=== PATIENT | female | born 1955 ===

== ENCOUNTER 2018-01-20 12:38 | Emergency (ER) | payer MEDICAID ==
[2018-01-20 12:46] VITALS: BP 133/80; TEMP 98
[2018-01-20] MEDS ORDERED: Albuterol-Ipratrop 3 mg / 0.5 (3 ml) UD ONE ×2 (12:55→13:48)
[2018-01-20] MEDS ORDERED: Albuterol-Ipratrop 3 mg / 0.5 (3 ml) UD IH SCH (13:15)
[2018-01-20] MEDS ORDERED: MethylPREDNISolone 40 mg Vial IVP STA (13:16)
[2018-01-20] MEDS ORDERED: Albuterol-Ipratrop 3 mg / 0.5 (3 ml) UD IH STA (13:46)
--- NOTE | 2018-01-20 13:48 | C.PDOC ---
History Of Present Illness 62 year old female, whose past medical history includes asthma, presents to the ED for evaluation of shortness of breath. Patient states she experiences shortness of breath on a daily basis, but her symptoms have been much worse over the past two days. She denies fever, chills, nausea and vomiting at this time. Time Seen by Provider: 01/20/18 12:53 Chief Complaint (Nursing): Shortness Of Breath History Per: Patient History/Exam Limitations: no limitations Onset/Duration Of Symptoms: Days (two ) Current Symptoms Are (Timing): Worse Current Respiratory Medications: See Home Med List Associated Symptoms: denies: Fever, Chills Additional History Per: Patient Past Medical History Reviewed: Historical Data, Nursing Documentation, Vital Signs Vital Signs: Last Vital Signs Temp 98 F 01/20/18 12:42 Pulse 90 01/20/18 12:42 Resp 22 01/20/18 12:54 BP 133/80 01/20/18 12:42 Pulse Ox 95 01/20/18 12:42 - Medical History PMH: Asthma, Hypercholesterolemia Surgical History: Appendectomy, Cholecystectomy - [facility] Procedures LAPAROSCOP APPENDECTOMY (09/01/12) Family History: States: Unknown Family Hx - Social History Hx Alcohol Use: No Hx Substance Use: No - Immunization History Hx Tetanus Toxoid Vaccination: No Hx Influenza Vaccination: No Hx Pneumococcal Vaccination: No Review Of Systems Constitutional: Negative for: Fever, Chills Respiratory: Positive for: Shortness of Breath Gastrointestinal: Negative for: Nausea, Vomiting Physical Exam - Physical Exam Additional Physical Exam Comments: Constitutional: No acute distress. Head: Normocephalic. Atraumatic. Eyes: PERRL. ENT: Moist mucous membranes. Neck: Supple. Cardiovascular: Regular rate. Radial pulse 2+ bilaterally. Chest: No tenderness. Respiratory: Diffuse wheezing. GI: Soft. Nontender. Nondistended. Back: No CVA tenderness. Musculoskeletal: No tenderness or swelling of extremities. Skin: No rash. Neurologic: Alert, no focal deficit. ED Course And Treatment - Laboratory Results Result Diagrams: 01/20/18 14:00 01/20/18 14:00 O2 Sat by Pulse Oximetry: 95 Pulse Ox Interpretation: Normal Medical Decision Making Medical Decision Making: Impression: 62 year old female with worsening shortness of breath Plan: * bloodwork * CXR * Albuterol INH * Solu-Medrol IVP * reassess and disposition Progress: Bloodwork and CXR ordered and reviewed. Albuterol INH and Solu-Medrol IVP given. CXR Impression: No pneumonia Patient feels better after treatment and would like to go home. Discharged home, f/u PMD, return to ED for worsening dyspnea. Disposition - Disposition Disposition: HOME/ ROUTINE Disposition Time: 14:53 Condition: STABLE Prescriptions: Prednisone [Deltasone] 3 tab PO DAILY #12 tablet Instructions: Asthma, Adult (DC) Forms: [employer] (Peruvian) - Clinical Impression Clinical Impression: Asthma exacerbation - Scribe Statement The provider has reviewed the documentation as recorded by the Scribe (Rosalee Dominguez) Provider Attestation: All medical record entries made by the Scribe were at my direction and personally dictated by me. I have reviewed the chart and agree that the record accurately reflects my personal performance of the history, physical exam, medical decision making, and the department course for this patient. I have also personally directed, reviewed, and agree with the discharge instructions and disposition.
[2018-01-20] MEDS ORDERED: Albuterol-Ipratrop 3 mg / 0.5 (3 ml) UD INH PRN (13:49)
[2018-01-20] MEDS ORDERED: Albuterol-Ipratrop 3 mg / 0.5 (3 ml) UD INH SCH (14:00)
[2018-01-20 14:07] LABS: BASO # 0.1 K/uL (0.0-0.2); BASO % 0.9 % (0.0-2.0); EOS # 0.3 K/uL (0.0-0.7); EOS % 4.1 % (0.0-4.0); HEMOGLOBIN 13.6 g/dL (11.0-16.0); LYMPH # 2.8 K/uL (1.0-4.3); LYMPH % 42.2 % (20.0-40.0); MEAN CELL VOLUME 95.8 fL (81.0-99.0); MEAN CORPUSCULAR HEMOGLOBIN 32.3 pg (27.0-31.0); MEAN CORPUSCULAR HGB CONC 33.8 g/dL (33.0-37.0); MEAN PLATELET VOLUME 8.2 fL (7.2-11.7); MONO # 0.6 K/uL (0.0-0.8); MONO % 9.1 % (0.0-10.0); NEUT # 2.9 K/uL (1.8-7.0); NEUT % 43.7 % (50.0-75.0); RBC 4.2 Mil/uL (3.80-5.20); RED CELL DISTRIBUTION WIDTH 13.5 % (11.5-14.5); WHITE BLOOD COUNT 6.5 K/uL (4.8-10.8)
[2018-01-20 14:26] LABS: ALB/GLOB RATIO 1.3 (1.0-2.1); ALT/SGPT 25 U/L (9-52); AST/SGOT 26 U/L (14-36); BLOOD UREA NITROGEN 16 mg/dL (7-17); CALCIUM 9.6 mg/dl (8.6-10.4); GFR NON-AFRICAN AMERICAN > 60
[2018-01-20 14:36] LABS: CK-MB 2.98 ng/mL (0.0-3.38)
[2018-01-20 14:59] VITALS: PULSE 84; RESP 18; O2SAT 99
--- NOTE | 2018-01-20 15:17 | RAD ---
HISTORY: dyspnea COMPARISON: None available. TECHNIQUE: Chest PA and lateral FINDINGS: LUNGS: Hyperinflation may be seen in the setting of COPD. No focal consolidation. Please note that chest x-ray has limited sensitivity for the detection of pulmonary masses. PLEURA: No significant pleural effusion identified. No definite pneumothorax . CARDIOVASCULAR: Heart size appears within normal limits. Ectatic aorta. Atherosclerotic calcifications of the aortic knob. OSSEOUS STRUCTURES: Degenerative changes. VISUALIZED UPPER ABDOMEN: Mild elevation of the right hemidiaphragm. OTHER FINDINGS: None. IMPRESSION: No focal consolidation. Hyperinflation may be seen in setting of COPD.
== END 2018-01-20 15:00 | disposition home or self-care (01) ==
LOC: C.ER 12:38
DX: J45.901 Unspecified asthma with (acute) exacerbation (principal); E78.00 Pure hypercholesterolemia, unspecified; F17.210 Nicotine dependence, cigarettes, uncomplicated
CPT/HCPCS: 71046; 80053; 82550; 82553; 84484; 85025; 96374; 99284; J2920